=== PATIENT | male | born 1985 | race Two or more races ===

== ENCOUNTER 2022-07-26 15:08 | Emergency (ER) | payer OTHER ==
--- NOTE | 2022-07-26 17:32 | Ultrasound Report ---
PROCEDURE: Testicle w/Doppler INDICATIONS: L testicular pain TECHNIQUE: Real-time scanning was performed of the scrotum and testicles, with image documentation. Color and p ulse Doppler interrogation was performed of both testicles. COMPARISON: None. FINDINGS: Right: Testicle is normal in size at 5.4 x 2.4 x 3.3 cm, and heterogeneous in echotexture. There is an appearance of a lobulated complex echogenic focus within the left testicle. Epididymis is normal in overall size and morphology. No varicoceles. Trace hydrocele. Overlying scrotal skin is normal i n thickness. Left: Testicle is normal in size at 6.8 x 4.4 x 5.0 cm, and homogeneous in echotexture. Epididymis is normal in overall size and morphology. No varicoceles. Trace hydrocele. Overlying scrotal skin is normal in thickness. Doppler: Color and pulse Doppler demonstrate normal and symmetric arterial flow in both testicles. IMPRESSION: Enlarged echogenic ill-defined appearance of the left testicle as above. Vascular flow is identified. Finding could be related to trauma or potentially intermittent torsion. Otherwise, mass lesion shoul d be considered in urology consult is recommended. Reviewed by: Monica Cisneros MD on 07/26/2022 5:30 PM PST Approved by: Monica Cisneros MD on 07/26/2022 5:30 PM PST Station ID: [id number]
[2022-07-26 18:23] LABS: BILIRUBIN,URINE NEGATIVE (NEGATIVE); GLUCOSE, URINE (UA) NEGATIVE (NEGATIVE); KETONES,URINE (UA) NEGATIVE (NEGATIVE); LEUKOCYTE ESTERASE, URINE NEGATIVE (NEGATIVE); NITRITE,URINE NEGATIVE (NEGATIVE); OCCULT BLOOD,URINE NEGATIVE (NEGATIVE); PROTEIN,URINE NEGATIVE (NEGATIVE); UROBILINOGEN,URINE 0.2 (NORMAL) E.U./dL (NORMAL)
[2022-07-26 18:25] LABS: CLARITY,URINE CLEAR (CLEAR)
--- NOTE | 2022-07-26 18:40 | ED Physician Documentation ---
History of Present Illness - Stated complaint Stated Complaint: MALE GI - Chief complaint Chief Complaint: General - History obtained from History obtained from: Patient - History of Present Illness Timing: How many weeks ago (1) Pain level max: 8 Pain level now: 8 - Additonal information Additional information: 36-year-old male presents to the emergency department left-sided testicular pain for 1 week. Worse with walking and movement. States the left testicle is enlarged. No fevers. No chills. Denies any STD exposure. Does not practice insertive anal intercourse. No penile discharge. No dysuria. No abdominal pain. No back pain. Review of Systems Constitutional: denies: Fever, Chills Respiratory: denies: Cough GI: denies: Nausea, Vomiting, Diarrhea Skin: denies: Rash Musculoskeletal: denies: Neck pain, Back pain Neurologic: denies: Headache PD PAST MEDICAL HISTORY - Past Medical History Past Medical History: No - Past Surgical History Past Surgical History: No - Present Medications Home Medications: Ambulatory Orders Medication Instructions Recorded Confirmed Doxycycline Monohydrate 100 mg PO BID #20 cap 07/26/22 - Allergies Allergies/Adverse Reactions: Allergies Allergy/AdvReac Type Severity Reaction Status Date / Time No Known Drug Allergies Allergy Verified 07/26/22 15:11 - Living Situation Living Arrangement: reports: At home - Social History Does the pt have substance abuse?: No - Family History Family history: reports: Non contributory PD ED PE NORMAL - Vitals Vital signs reviewed: Yes - General General: Alert and oriented X 3, No acute distress - HEENT HEENT: Moist mucous membranes - Neck Neck: Supple, no meningeal sign - Cardiac Cardiac: RRR - Respiratory Respiratory: No respiratory distress, Clear bilaterally - Abdomen Abdomen: Soft, Non tender, Non distended - Male Male : Other (Very enlarged and firm left testicle. Normal-appearing scrotum. Diffuse tenderness to the testicle. Right testicle is normal) - Derm Derm: Warm and dry - Neuro Neuro: Alert and oriented X 3 - Psych Psych: Normal mood, Normal affect Results - Vitals Vitals: Vital Signs - 24 hr 07/26/22 07/26/22 15:11 18:55 Temperature 36.5 C Heart Rate 65 75 Respiratory 16 18 Rate Blood Pressure 180/80 H 135/75 H O2 Saturation 99 98 Oxygen O2 Source Room air - Labs Labs: Laboratory Tests 07/26/22 18:15 Urine Color YELLOW Urine Clarity CLEAR Urine pH 6.0 Ur Specific [place] 1.025 Urine Protein NEGATIVE Urine Glucose (UA) NEGATIVE Urine Ketones NEGATIVE Urine Occult Blood NEGATIVE Urine Nitrite NEGATIVE Urine Bilirubin NEGATIVE Urine Urobilinogen 0.2 (NORMAL) Ur Leukocyte Esterase NEGATIVE Ur Microscopic Review NOT INDICATED Urine Culture Comments NOT INDICATED - Rads (name of study) Testicular ultrasound Radiology: Final report received, EMP read contemporaneously, See rad report PD MEDICAL DECISION MAKING - ED course Complexity details: reviewed results, re-evaluated patient, considered differential, d/w patient, d/w solutions delivery consultant ED course: 36-year-old male with an enlarged left testicle, homogenous echotexture. Normal Doppler. Discussed the case with Dr. Whitman, urology on-call at [facility], he recommends treating as orchitis, placing on antibiotics and close follow-up in the urology office. The patient was given the information for follow-up. Started on Rocephin. We will continue doxycycline. Patient counseled regarding signs and symptoms for which I believe and urgent re- evaluation would be necessary. Patient with good understanding of and agreement to plan and is comfortable going home at this time This document was made in part using voice recognition software. While efforts are made to proofread this document, sound alike and grammatical errors may occur. IMPRESSION: Enlarged echogenic ill-defined appearance of the left testicle as above. Vascular flow is identified. Finding could be related to trauma or potentially intermittent torsion. Otherwise, mass lesion should be considered in urology consult is recommended. Departure - Departure Disposition: 01 Home, Self Care Clinical Impression: Orchitis, Enlarged testicle Condition: Good Instructions: ED Orchitis Follow-Up: [facility] [Provider Group] - Within 1 week Prescriptions: Doxycycline Monohydrate 100 mg PO BID #20 cap Comments: Please follow-up with [facility] urology for further care. I spoke with Dr. Edin Oneal. Please take a copy of your ultrasound with you. Please call tomorrow for an appointment. Your prescriptions were sent [facility] [facility] [place]. [facility] urology [phone] Discharge Date/Time: 07/26/22 19:01
[2022-07-26] MEDS ORDERED: cefTRIAXone 1 GM VIAL IM STA (18:42)
[2022-07-26] MEDS ORDERED: LIDOCAINE 1% 2 ML VIAL MC ONE (18:42)
[2022-07-26] MEDS ORDERED: DOXYCYCLINE 100 MG TABLET PO STA (18:44)
[2022-07-26 18:56] VITALS: BP 135/75
== END 2022-07-26 19:01 | disposition home or self-care (01) ==
LOC: ED 15:08
DX: N45.2 Orchitis (principal); N44.8 Other noninflammatory disorders of the testis
CPT/HCPCS: 76870; 81003; 93975; 96372; 99282; 99284; A9270; 81001; 87086

== ENCOUNTER 2022-11-02 12:03 | Inpatient (IN) | payer OTHER ==
[2022-11-02 13:26] LABS: BASOPHILS % (AUTO) 0.6 %; EOSINOPHILS # (AUTO) 0.1 10^3/uL (0.0-0.7); EOSINOPHILS % (AUTO) 1.9 %; LYMPHOCYTES % (AUTO) 61.4 %; MEAN CORPUSCULAR HGB CONC 34.1 g/dL (32.0-36.0); MEAN CORPUSCULAR VOLUME 85.1 fL (80.0-94.0); MEAN PLATELET VOLUME 9.8 fL (7.4-11.4); MONOCYTES # (AUTO) 0.8 10^3/uL (0.0-1.0); MONOCYTES % (AUTO) 15.9 %; NEUTROPHILS # (AUTO) 0.9 10^3/uL (1.5-6.6); NEUTROPHILS % (AUTO) 17.9 %; PLT - PLATELET COUNT 322 10^3/uL (130-450); RED BLOOD COUNT 5.17 10^6/uL (4.70-6.10); RED CELL DISTRIBUTION WIDTH 12.3 % (12.0-15.0); WHITE BLOOD COUNT 4.8 x10^3/uL (4.8-10.8)
[2022-11-02 13:34] LABS: ALBUMIN 3.9 g/dL (3.2-5.5); BILIRUBIN,TOTAL 0.3 mg/dL (0.2-1.0); CALCIUM 9.3 mg/dL (8.5-10.3); CREATININE 1.4 mg/dL (0.6-1.2); LACTIC ACID, VENOUS 2.1 mmol/L (0.5-2.2); POTASSIUM 3.7 mmol/L (3.5-5.0); TOTAL PROTEIN 7.9 g/dL (6.7-8.2)
[2022-11-02 13:35] LABS: INR 1.2 (0.8-1.2); PT - PROTHROMBIN TIME 13.5 secs (9.9-12.6)
--- NOTE | 2022-11-02 13:51 | ED Physician Documentation ---
History of Present Illness - Stated complaint Stated Complaint: SOA - Chief complaint Chief Complaint: Resp - History obtained from History obtained from: Patient - Additonal information Additional information: Otherwise healthy 45-jhyn-gunr-old gentleman was diagnosed with testicular cancer and had a orchiectomy in August. He was followed at [facility] and since October 13 has been getting chemotherapy with Cytoxan, bleomycin, cisplatin, and etoposide. Most recently last Wednesdays, 6 days ago. For the next few days he developed fevers and now feels shortness of breath with some left-sided pain. No persistent fevers. He does have some left calf pain with this. PD PAST MEDICAL HISTORY - Past Surgical History Past Surgical History: No - Present Medications Home Medications: Ambulatory Orders Medication Instructions Recorded Confirmed Ibuprofen [Motrin] 1 tablet PO Q8H PRN 11/02/22 11/02/22 OLANZapine [Zyprexa] 5 mg PO HS 11/02/22 11/02/22 Prochlorperazine Maleate 10 mg PO Q6HR PRN 11/02/22 11/02/22 [Compazine] ondansetron HCL [Ondansetron HCl] 8 mg PO Q8HR PRN 11/02/22 11/02/22 - Allergies Allergies/Adverse Reactions: Allergies Allergy/AdvReac Type Severity Reaction Status Date / Time No Known Drug Allergies Allergy Verified 11/02/22 12:53 - Social History Does the pt smoke?: No Smoking Status: Never smoker Does the pt have substance abuse?: No - Immunizations Immunizations are current?: Yes - POLST Patient has POLST: No PD ED PE NORMAL - Vitals Vital signs reviewed: Yes - General General: Alert and oriented X 3, No acute distress - Neck Neck: Supple, no meningeal sign - Cardiac Cardiac: RRR, No murmur - Respiratory Respiratory: No respiratory distress, Clear bilaterally - Abdomen Abdomen: Non tender - Extremities Extremities: No edema, No calf tenderness / cord - Neuro Neuro: Alert and oriented X 3, Normal speech Results - Vitals Vitals: Vital Signs - 24 hr 11/02/22 11/02/22 11/02/22 12:47 13:45 14:36 Temperature 36.8 C Heart Rate 90 95 Respiratory 26 H 16 18 Rate Blood Pressure 182/93 H 169/89 H O2 Saturation 96 97 11/02/22 11/02/2211/02/23 15:46 16:13 16:30 Temperature Heart Rate 82 88 87 Respiratory 17 19 17 Rate Blood Pressure 139/88 H 164/96 H 143/91 H O2 Saturation 96 93 94 11/02/22 11/02/22 11/02/22 17:00 18:00 18:30 Temperature Heart Rate 101 H 94 95 Respiratory 22 21 25 H Rate Blood Pressure 156/75 H 177/81 H 160/89 H O2 Saturation 94 95 94 11/02/22 19:00 Temperature Heart Rate 95 Respiratory 20 Rate Blood Pressure 162/52 H O2 Saturation 95 Oxygen O2 Source Room air - Labs Labs: Laboratory Tests 11/02/22 11/02/22 11/02/22 13:16 13:16 13:16 WBC 4.8 RBC 5.17 Hgb 15.0 Hct 44.0 MCV 85.1 MCH 29.0 MCHC 34.1 RDW 12.3 Plt Count 322 MPV 9.8 Neut # (Auto) 0.9 L Lymph # (Auto) 3.0 [place] # (Auto) 0.8 Eos # (Auto) 0.1 Baso # (Auto) 0.0 Absolute Nucleated RBC 0.00 Nucleated RBC % 0.0 PT INR Sodium 137 Potassium 3.7 Chloride 101 Carbon Dioxide 25 Anion Gap 11.0 BUN 16 Creatinine 1.4 H Estimated GFR (MDRD) 57 L Glucose 97 Lactic Acid 2.1 Calcium 9.3 Total Bilirubin 0.3 AST 26 ALT 51 Alkaline Phosphatase 63 Total Protein 7.9 Albumin 3.9 Globulin 4.0 Albumin/Globulin Ratio 1.0 Nasal Adenovirus (PCR) Nasal B. parapertussis DNA (PCR) Nasal Coronavir 229E PCR Nasal Coronavir HKU1 PCR Nasal Coronavir NL63 PCR Nasal Coronavir OC43 PCR Nasal Enterovir/Rhinovir PCR Nasal Influenza B PCR Nasal Influenza A PCR Nasal Parainfluen 1 PCR Nasal Parainfluen 2 PCR Nasal Parainfluen 3 PCR Nasal Parainfluen 4 PCR Nasal RSV (PCR) Nasal B.pertussis DNA PCR Nasal C.pneumoniae (PCR) Frank Human Metapneumo PCR Nasal M.pneumoniae (PCR) Nasal SARS-CoV-2 (PCR) 11/02/22 11/02/22 11/02/22 13:16 13:55 16:28 WBC RBC Hgb Hct MCV MCH MCHC RDW Plt Count MPV Neut # (Auto) Lymph # (Auto) [place] # (Auto) Eos # (Auto) Baso # (Auto) Absolute Nucleated RBC Nucleated RBC % PT 13.5 H INR 1.2 Sodium Potassium Chloride Carbon Dioxide Anion Gap BUN Creatinine Estimated GFR (MDRD) Glucose Lactic Acid 1.1 Calcium Total Bilirubin AST ALT Alkaline Phosphatase Total Protein Albumin Globulin Albumin/Globulin Ratio Nasal Adenovirus (PCR) NOT DETECTED Nasal B. parapertussis DNA (PCR) NOT DETECTED Nasal Coronavir 229E PCR NOT DETECTED Nasal Coronavir HKU1 PCR NOT DETECTED Nasal Coronavir NL63 PCR NOT DETECTED Nasal Coronavir OC43 PCR NOT DETECTED Nasal Enterovir/Rhinovir PCR NOT DETECTED Nasal Influenza B PCR NOT DETECTED Nasal Influenza A PCR NOT DETECTED Nasal Parainfluen 1 PCR NOT DETECTED Nasal Parainfluen 2 PCR NOT DETECTED Nasal Parainfluen 3 PCR NOT DETECTED Nasal Parainfluen 4 PCR NOT DETECTED Nasal RSV (PCR) NOT DETECTED Nasal B.pertussis DNA PCR NOT DETECTED Nasal C.pneumoniae (PCR) NOT DETECTED Frank Human Metapneumo PCR NOT DETECTED Nasal M.pneumoniae (PCR) NOT DETECTED Nasal SARS-CoV-2 (PCR) NOT DETECTED - Rads (name of study) CT pulmonary angiography shows extensive pulmonary emboli without evidence of right heart strain. Radiology: Final report received, Discussed with rads, EMP read indepedently PD Medical Decision Making - ED course ED course: 37-year-old gentleman with active testicular cancer undergoing chemotherapy presents with shortness of breath. He has a little bit of left-sided pain. Given the fevers at the onset it really sound more like a URI more than anything else, that said he is at high risk for pulmonary embolism and this was evaluated for with a CT angiography that was positive for a fairly large clot burden but without CT evidence of right heart strain. Subsequently a heparin drip was started and he was referred for echocardiography. Preliminary echo read: LVEF and systolic function normal with an EF of 55 to 60%. Mild RV enlargement. Moderate RV systolic dysfunction. Positive Mccain sign. RV fractional area change is 24%. Mild right atrial enlargement. Trace TR, trace MR, trace RI. The call was placed to [facility] for pulmonary consult for help with disposition. Patient appears well and probably could be discharged on a DOAC, that said the volume of clot burden and mild right heart strain necessitate consultation. After some delays I was put in contact with Dr. Priyank Messina, pulmonary at the [place]. He had reviewed the CTs and we discussed his echo, clinical presentation and vital signs. He did not feel the patient needed to be transferred for thrombolysis etc. but did feel that the patient should probably be observed in the hospital overnight on a heparin drip and then transitioned to apixaban tomorrow. D/W Dr Nino, Telehealth hospitalist at 8:42 PM and he will see the patient. Departure - Departure Disposition: ED Place in Observation Clinical Impression: Pulmonary embolism Condition: Stable Record reviewed to determine appropriate education?: Yes
--- NOTE | 2022-11-02 13:55 | XRAY Report ---
PROCEDURE: Chest 1 View X-Ray INDICATIONS: dyspnea TECHNIQUE: One view of the chest was acquired. COMPARISON: None. FINDINGS: Surgical changes and devices: None. Lungs and pleura: No pleural effusions or pneumothorax. Lungs are clear. Mediastinum: Mediastinal contours appear normal. Heart size is normal. Bones and chest wall: No suspicious bony lesions. Overlying soft tissues appear unremarkable. IMPRESSION: No acute cardiopulmonary pathology. Reviewed by: Gil Mcdowell MD on 11/02/2022 1:53 PM [facility] Approved by: Gil Mcdowell MD on 11/02/2022 1:53 PM [facility] Station ID: [id number]
[2022-11-02] MEDS ORDERED: iohexoL-300 100 ML VIAL ONE (14:46)
[2022-11-02 15:14] LABS: B. PARAPERTUSSIS- RESP PCR PAN NOT DETECTED; B. PERTUSSIS- RESP PCR PANEL NOT DETECTED; C. PNEUMONIAE- RESP PCR PANEL NOT DETECTED; CORONAVIRUS 229E-RESP PCR NOT DETECTED; CORONAVIRUS HKU1-RESP PCR NOT DETECTED; CORONAVIRUS NL63-RESP PCR NOT DETECTED; CORONAVIRUS OC43-RESP PCR NOT DETECTED; HUMAN METAPNEUMOVIRUS NOT DETECTED; INFLUENZA A- RESP PCR PANEL NOT DETECTED; INFLUENZA B - RESP PCR PANEL NOT DETECTED; M. PNEUMONIAE- RESP PCR PANEL NOT DETECTED; PARAINFLUENZA VIRUS 1 NOT DETECTED; PARAINFLUENZA VIRUS 2 NOT DETECTED; PARAINFLUENZA VIRUS 3 NOT DETECTED; PARAINFLUENZA VIRUS 4 NOT DETECTED; RHINOVIRUS/ENTEROVIRUS NOT DETECTED; RSV- RESP PCR PANEL NOT DETECTED; SARS-CoV-2 -RESP PCR PANEL NOT DETECTED
[2022-11-02] MEDS ORDERED: iohexoL-300 100 ML VIAL IVP ONE (15:24)
--- NOTE | 2022-11-02 15:28 | CT Report ---
PROCEDURE: ANGIO CHEST W/WO INDICATIONS: dyspnea, CA, pe protocol CONTRAST: 80ml Omnipaque 300 TECHNIQUE: After the administration of intravenous contrast, 2 mm axial images were acquired from the pulmonary apices to the posterior costophrenic angles during the arterial phase. In addition, 1 mm lung kernel and 5 mm soft tissue kernel reconstructions were performed. 3-dimensional coronal oblique maximum int ensity projection (MIP) reformats, 8 mm axial MIP, and 5 mm coronal and sagittal MPR reformats were t hen performed through the thorax. For radiation dose reduction, the following was used: automated exp osure control, adjustment of mA and/or kV according to patient size. COMPARISON: Chest radiograph on the same day FINDINGS: Image quality: Excellent. Pulmonary arteries: Pulmonary arteries are normal in size. Intraluminal filling defects are seen inv olving distal main pulmonary artery at the bifurcation extending to involve bilateral upper, lower, a nd right middle lobe pulmonary artery branches consistent with extensive bilateral pulmonary emboli. Lungs and pleura: Small airspace opacity in posterior aspect of left lung base is seen concerning for small left lower lobe infiltrate. No pleural effusions or pneumothorax. Central and peripheral airw ays are patent. Mediastinum: Heart size is normal, without pericardial effusion. No definite sign of right heart st rain is noted at this time. No mediastinal or hilar adenopathy. Thoracic aorta is normal in caliber and enhancement. Esophagus is normal in caliber, without hiatal hernia. Bones and chest wall: No suspicious bony lesions. Ribs and thoracic spine appear intact throughout. No axillary or supraclavicular adenopathy. The thyroid is normal in size and there are no incident al findings. Abdomen: Visualized upper abdominal solid organs appear normal in the early arterial phase of enhanc ement. IMPRESSION: 1. Extensive bilateral pulmonary emboli as above. 2. No definite evidence of right heart strain at this time. Heart size is normal, no pericardial effu kenji. No mediastinal or hilar lymphadenopathy. 3. Suggestion of small infiltrate versus atelectasis in posterior aspect of left lung base. Bilateral lungs are otherwise clear. CLINICAL RECOMMENDATION STATEMENTS: In patients <35 years with an ITN detected on CT, MRI, or extrathyroidal ultrasound, the Committee re commends further evaluation with dedicated thyroid ultrasound if the nodule is "e1 cm and has no susp icious imaging features, and if the patient has normal life expectancy. In patients "e35 years with an ITN detected on CT, MRI, or extrathyroidal ultrasound, the Committee r ecommends further evaluation with dedicated thyroid ultrasound if the nodule is "e1.5 cm and has no s uspicious imaging features, and if the patient has normal life expectancy. (ACR, 2014) Reviewed by: Gil Mcdowell MD on 11/02/2022 3:27 PM PST Approved by: Gil Mcdowell MD on 11/02/2022 3:27 PM PST Station ID: [id number]
[2022-11-02] MEDS ORDERED: HEPARIN 5,000 UNIT/ML VIAL IVP ONE (15:30)
[2022-11-02] MEDS: HEPARIN 25000UNITS/500ML (D5W) 25,000 UNIT/500 ML BAG IV SCH (15:37)
[2022-11-02] MEDS ORDERED: ONDANSETRON 4 MG/2 ML VIAL IVP PRN (20:43)
[2022-11-02] MEDS ORDERED: SODIUM CHLORIDE FLUSH 0.9% 10 ML SYRINGE IVP PRN (20:43)
--- NOTE | 2022-11-02 21:13 | HISTORY & PHYSICAL EXAMINATION ---
Chief Complaint - Chief Complaint Chief Complaint: SOB History of Present Illness - History of Present Illness HPI Comment/Other: 37 y old male with PMH Testicular cancer s/p orchiectomy , on chemo presented to ER with c/o SOB for few days. Also c/o low grade fever. Denies chest pain, NAJERA, nausea, vomiting, diarrhea , constipation, symptoms On presentaion, pt afebrile, BP accelerated.Sao2 95% RA Labs showed normal WBC, INR 1.2, Hat Braider 1.4 COVID neg CTA chest showed b/l PE As per ER physician, Dr Randall,Echo showed mild right heart starin and he consulted with cell tuber machine at the [facility] [place] who recommended admission for observation and heparin gtt. Venous doppler of leg is pending In ER, pt was started on heparin gtt Patient is being admitted for Pulmonary emboli History - Past Medical History Cardiovascular: reports: None Respiratory: reports: None Neuro: reports: None Endocrine/Autoimmune: reports: None GI: reports: None : reports: None HEENT: reports: None Psych: reports: None Musculoskeletal: reports: None Derm: reports: None MRSA Hx?: No Other Past Medical History: testicular cancer - POLST Patient has POLST: No Meds/Allgy - Home Medications Home Medications: Ambulatory Orders Medication Instructions Recorded Confirmed Ibuprofen [Motrin] 1 tablet PO Q8H PRN 11/02/22 11/02/22 OLANZapine [Zyprexa] 5 mg PO HS 11/02/22 11/02/22 Prochlorperazine Maleate 10 mg PO Q6HR PRN 11/02/22 11/02/22 [Compazine] ondansetron HCL [Ondansetron HCl] 8 mg PO Q8HR PRN 11/02/22 11/02/22 - Allergies Allergies/Adverse Reactions: Allergies Allergy/AdvReac Type Severity Reaction Status Date / Time No Known Drug Allergies Allergy Verified 11/02/22 12:53 Review of Systems - Other Findings Other Findings: 12 points systems were reviewed and were negative except mentioned in HPI Exam - Vital Signs Vital Signs: Vital Signs x48h Pulse Resp BP Pulse Ox 11/02/22 19:00 95 20 162/52 H 95 11/02/22 18:30 95 25 H 160/89 H 94 11/02/22 18:00 94 21 177/81 H 95 11/02/22 17:00 101 H 22 156/75 H 94 11/02/22 16:30 87 17 143/91 H 94 11/02/22 16:13 88 19 164/96 H 93 11/02/22 15:46 82 17 139/88 H 96 11/02/22 14:36 95 18 169/89 H 97 11/02/22 13:45 16 - Physical Exam General Appearance: positive: No acute distress Eyes Bilateral: positive: Normal inspection ENT: positive: ENT inspection nml Neck: positive: Nml inspection Respiratory: positive: No respiratory distress, Breath sounds nml Cardiovascular: positive: Regular rate & rhythm Abdomen: positive: Non-tender, Nml bowel sounds Skin: positive: No rash Extremities: positive: No pedal edema Conclusion/Plan - Lab Results Fish Bones: 11/02/22 13:16 11/02/22 13:16 - Other Other Results/Comments: A; Pulmonary emboli Testicular cancer s/p Orchiectomy, on chemo Renal insufficiency Plan: Admit in ICU Cardiac monitoring Echo Cardiac enzymes Cont hepatin gtt Venous doppler of legs pending Supportive care Repeat CBC, CMP in am DVT prophylaxic: On heparin gtt Full code Pt is admitted as inpatient as more than 2 midnight stay is expected
--- NOTE | 2022-11-02 22:41 | Ultrasound Report ---
PROCEDURE: Duplex Ext Veins Bilateral INDICATIONS: PE. TECHNIQUE: Real-time imaging, as well as color and pulse Doppler interrogation, were performed of the deep veins of both legs from the inguinal ligament to the popliteal fossa. COMPARISON: CT angiogram chest 10/25/2022 FINDINGS: There are nonocclusive filling defects within the mid left superficial femoral vein, popliteal vein, and 1 of 2 posterior tibial veins. Thrombus also demonstrated within the left gastrocnemius vein. The common femoral and proximal superficial femoral veins appear patent. The deep veins of the right lower extremity are normally compressible, and free of intraluminal throm bus. Color and pulse Doppler demonstrate normal phasic intravascular flow. There is normal augmenta tion response to distal compression maneuver. IMPRESSION: 1. Nonocclusive deep venous thrombosis demonstrated within the left lower extremity as described. 2. No evidence of deep venous thrombosis in the right lower extremity. Findings reported to Dr. Street and Dr. Fuentes at the conclusion of the study by the ultrasound techn ologist. Reviewed by: Shun Clark MD on 11/02/2022 10:39 PM PST Approved by: Shun Clark MD on 11/02/2022 10:39 PM PST Station ID: [id number]
[2022-11-02] MEDS ORDERED: PROMETHAZINE 25 MG TABLET PO PRN (23:34)
[2022-11-03] MEDS: SODIUM CHLORIDE FLUSH 0.9% 10 ML SYRINGE IVP SCH ×2 (00:04→09:41)
[2022-11-03] MEDS: HEPARIN 25000UNITS/500ML (D5W) 25,000 UNIT/500 ML BAG IV SCH ×2 (03:20→13:25)
[2022-11-03 04:44] LABS: BASOPHILS % (AUTO) 0.4 %; CALCIUM, IONIZED 1.15 mmol/L (1.15-1.33); EOSINOPHILS # (AUTO) 0.1 10^3/uL (0.0-0.7); EOSINOPHILS % (AUTO) 1.7 %; HCT - HEMATOCRIT 41.7 % (42.0-52.0); HGB - HEMOGLOBIN 14.2 g/dL (14.0-18.0); LYMPHOCYTES # (AUTO) 3.6 10^3/uL (1.5-3.5); LYMPHOCYTES % (AUTO) 65.8 %; MEAN CORPUSCULAR HEMOGLOBIN 28.7 pg (27.0-31.0); MEAN CORPUSCULAR HGB CONC 34.1 g/dL (32.0-36.0); MEAN CORPUSCULAR VOLUME 84.4 fL (80.0-94.0); MEAN PLATELET VOLUME 9.7 fL (7.4-11.4); MONOCYTES # (AUTO) 0.7 10^3/uL (0.0-1.0); MONOCYTES % (AUTO) 12.5 %; NEUTROPHILS # (AUTO) 0.9 10^3/uL (1.5-6.6); NEUTROPHILS % (AUTO) 17.2 %; PLT - PLATELET COUNT 319 10^3/uL (130-450); RED BLOOD COUNT 4.94 10^6/uL (4.70-6.10); RED CELL DISTRIBUTION WIDTH 12.4 % (12.0-15.0); VBG PH 7.422 (7.31-7.41); WHITE BLOOD COUNT 5.4 x10^3/uL (4.8-10.8)
[2022-11-03 05:02] LABS: ALBUMIN 3.6 g/dL (3.2-5.5); BILIRUBIN,TOTAL 0.3 mg/dL (0.2-1.0); CALCIUM 9.3 mg/dL (8.5-10.3); CREATININE 1.2 mg/dL (0.6-1.2); MAGNESIUM 2.3 mg/dL (1.7-2.8); PHOSPHORUS 4.8 mg/dL (2.5-4.6); POTASSIUM 3.8 mmol/L (3.5-5.0); TOTAL PROTEIN 7.1 g/dL (6.7-8.2)
[2022-11-03] MEDS ORDERED: POTASSIUM CHLORIDE 20 MEQ TABLET PO ONE (08:00)
--- NOTE | 2022-11-03 10:57 | PHARMACY PROGRESS NOTE ---
- Best Possible Medication History Admit Date and Time: 11/02/222043 Processed by: Pharmacy Medication History completed: Yes Patient Interview: Completed Secondary Source(s): Pharmacy records As the person ultimately responsible for medication therapy, providers are able to order a medication from an existing home medication list in [facility] via the "Reconcile Routine" prior to Confirmation of that medication by support architect. Such practice is discouraged except when the physician, in their clinical judgment, deems that a medical need exists for a medication without regard to previous use.
[2022-11-03 13:59] LABS: FECAL OCCULT BLOOD (FIT) NEGATIVE (NEGATIVE)
[2022-11-03] MEDS ORDERED: APIXABAN 5 MG TABLET PO SCH ×3 (14:53→21:00)
--- NOTE | 2022-11-03 15:00 | Discharge Plan ---
Discharge Plan Problem Reviewed?: Yes Disposition: Home, Self Care Condition: Stable Prescriptions: Apixaban [Eliquis] 5 mg PO BID #60 tablet Apixaban [Eliquis] 10 mg PO BID #13 tab Diet: Regular Activity Restrictions: Activity as Tolerated Shower Restrictions: No Driving Restrictions: No Instruction Topics: Apixaban oral tablets Health Concerns: You had been on the phone speaking to your oncology office, getting ready for your next infusion. After asking some questions, and complaints of leg pain, they asked you to be evaluated. You came to the emergency room and was found to have a blood clot in your leg, and a pulmonary embolus in your pulmonary artery, called a saddle embolus. Those can be very dangerous and asked that you were brought into the hospital overnight and monitored. You stayed stable overnight, and you are on blood thinners. I spoke to your oncologist and they requested that you start a blood thinner and you are safe to go home. They will see you in follow-up in the next week. Plan of Treatment: Please follow-up with your oncologist Scooter Yarbrough or his nurse Rosalina in the next week. If you have any recurrence of severe chest pain, or shortness of breath, please feel free to come back to the emergency room. We have started you on a blood thinner, this will prevent more blood clot from forming. Your body will take care of the clot you already have and gradually dissolve it on its own. For the first 7 days you will take 10 mg tablets, twice a day. After that you will switch to 5 mg tablets, twice a day indefinitely. Follow the instructions of your oncologist and he will tell you how long to stay on this pill. This pill is a blood thinner. Do not take aspirin, Aleve, ibuprofen, Naprosyn, or any nonsteroidal with this medication unless you speak to your oncologist or primary care provider. You can take Tylenol for fever or pain. If you have a severe fall, and you have later began to have headaches, dizziness, blurred vision, please go to the emergency room. Care Goals: At this time to get through your cancer treatment, and resume your usual life Assessment: Patient is alert, oriented, lucid, able to follow instructions. He states he will follow through. No Smoking: If you smoke, Please STOP! Call for help.
--- NOTE | 2022-11-03 15:11 | DISCHARGE SUMMARY ---
"Discharge Summary Admit Date: 11/02/22 Discharge Date: 11/03/22 Discharging Provider: Pauline Plaza MD Primary Care Provider: Scooter Yarbrough MD, MS Asst Prof [facility], Oncology Condition at Discharge: Stable Discharge Disposition: 01 Home, Self Care - DIAGNOSES Discharge Diagnoses with Status of Each Condition: 1. Pulmonary Saddle embolus 2. DVT left leg 3. Stage IV testicular cancer - HPI History of Present Illness: 37 y old male with PMH Testicular cancer s/p orchiectomy , on chemo presented to ER with c/o SOB for few days. Also c/o low grade fever. 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 Venous doppler of leg is pending In ER, pt was started on heparin gtt Patient is being admitted for Pulmonary emboli - Past Medical History Cardiovascular: reports: None Respiratory: reports: None Neuro: reports: None Endocrine/Autoimmune: reports: None GI: reports: None : reports: None HEENT: reports: None Psych: reports: None Musculoskeletal: reports: None Derm: reports: None MRSA Hx?: No Other Past Medical History: testicular cancer - CONSULTS | PROCEDURES Procedures: Chest/thorax CT angiogram. Small airspace opacity concerning for a small left lower lobe infiltrate. Pulmonary arteries are normal. Intraluminal filling defect seen involving the distal main pulmonary artery at the bifurcation extending to involve bilateral upper, lower, and right middle lobe pulmonary artery branches consistent with extensive bilateral pulmonary emboli. Chest x-ray without acute cardiopulmonary abnormality Venous duplex study of left lower extremity showed nonocclusive deep venous thr ombosis. No evidence of DVT in the right lower extremity. - HOSPITAL COURSE Hospital Course: The patient was placed in the hospital to start on a heparin drip. He had no further chest pain, and oxygen requirements were normal. He remained with normal O2 sats in the short time he was here. He had no chest pain. No cough. I was able to speak to his oncologist, Scooter Yarbrough MD, who is with [facility]. I described what happened to the patient. Patient had RV strain on echo with a saddle embolus. I specifically wanted to know what the timing was to start anticoagulation by mouth. He stated that the patient was able to start any DOAC today. And he would be able to be discharged today. Patient was delighted with that news. And I ordered Eliquis 10 mg p.o. twice daily for 7 days. Then switch to 5 mg p.o. twice daily thereafter. I told the patient that his oncologist will decide how long he was going to stay on anticoa gulation. He has received instructions on the use of Eliquis. I have also instructed the patient not to use any nonsteroidal therapy. He can use Tylenol for pain relief. One of the things he needs to watch out for in the next few months is developing pulmonary hypertension because of his high embolus load. Make sure he follows through with either his oncologist or his primary care provider to receive follow-up for that. He is discharged in stable condition. Temperature is 36.6. Heart rate 100. Blood pressure 160/98. Respirations 19. 92% on room air. He has been sitting upright in his chair, comfortable, and playing video games. He is playing great when right now and he says it is really helped past the time of the boredom of being in the hospital. His neck is supple. Lungs are clear to auscultation and percussion. There is no increased respiratory effort. Regular rate and rhythm. Occasionally tachycardic to 105. Abdomen is soft, nontender. Greater than 30 minutes was spent correlating discharge after conversing with the patient's oncologist, the patient, and coordinating which DOAC would be paid for by his insurance. - ALLERGIES Allergies/Adverse Reactions: Allergies Allergy/AdvReac Type Severity Reaction Status Date / Time No Known Drug Allergies Allergy Verified 11/02/22 12:53 - MEDICATIONS Home Medications: Ambulatory Orders Medication Instructions Recorded Confirmed Ibuprofen [Motrin] 1 tablet PO Q8H PRN 11/02/22 11/02/22 OLANZapine [Zyprexa] 5 mg PO HS 11/02/22 11/02/22 Prochlorperazine Maleate 10 mg PO Q6HR PRN 11/02/22 11/02/22 [Compazine] ondansetron HCL [Ondansetron HCl] 8 mg PO Q8HR PRN 11/02/22 11/02/22 Apixaban [Eliquis] 5 mg PO BID #60 tablet 11/03/22 Apixaban [Eliquis] 10 mg PO BID #13 tab 11/03/22 HYDROcod/ACETAM 5/325 [Leslie 5/325] 1 tab PO QID PRN 11/03/22 11/03/22 Ketoconazole [Nizoral A-D] See Rx Instructions .ROUTE .COMPLEX 11/03/22 11/03/22 Multivitamin [Theragran] 1 tab PO DAILY 11/03/22 11/03/22 - LABS Result Diagrams: 11/03/22 04:19 11/03/22 04:19"
[2022-11-03 16:47] VITALS: BP 155/94
== END 2022-11-03 17:08 | disposition home or self-care (01) | DRG 176 ==
LOC: ED 12:03 → ICU 20:44
PROVIDERS: ADMIT Internal Medicine; ATTEND Specialist
DX: I26.92 Saddle embolus of pulmonary artery without acute cor pulmonale (principal); I82.4Z2 Acute embolism and thrombosis of unspecified deep veins of left distal lower extremity; C62.90 Malignant neoplasm of unspecified testis, unspecified whether descended or undescended; Z90.79 Acquired absence of other genital organ(s); R50.9 Fever, unspecified; Z20.822 Contact with and (suspected) exposure to COVID-19
CPT/HCPCS: 36415; 71045; 71275; 80048; 80053; 82274; 82330; 83605; 83735; 84100; 84484; 85025; 85610; 85730; 87040; 87150; 87633; 93306; 93970; 96374; 99285; A9270; Q0169; Q9967

== ENCOUNTER 2022-11-20 17:08 | Emergency (ER) | payer OTHER ==
[2022-11-20 17:32] LABS: BASOPHILS % (AUTO) 1.2 %; EOSINOPHILS # (AUTO) 0.1 10^3/uL (0.0-0.7); EOSINOPHILS % (AUTO) 3.6 %; HCT - HEMATOCRIT 34.2 % (42.0-52.0); HGB - HEMOGLOBIN 11.9 g/dL (14.0-18.0); LYMPHOCYTES # (AUTO) 0.9 10^3/uL (1.5-3.5); LYMPHOCYTES % (AUTO) 55.4 %; MEAN CORPUSCULAR HEMOGLOBIN 28.9 pg (27.0-31.0); MEAN CORPUSCULAR HGB CONC 34.8 g/dL (32.0-36.0); MEAN PLATELET VOLUME 9.1 fL (7.4-11.4); MONOCYTES # (AUTO) 0.1 10^3/uL (0.0-1.0); MONOCYTES % (AUTO) 4.8 %; PLT - PLATELET COUNT 80 10^3/uL (130-450); RED BLOOD COUNT 4.12 10^6/uL (4.70-6.10); RED CELL DISTRIBUTION WIDTH 13.3 % (12.0-15.0)
[2022-11-20 17:37] LABS: INR 1.1 (0.8-1.2); PT - PROTHROMBIN TIME 12.1 secs (9.9-12.6)
[2022-11-20 17:43] LABS: ALBUMIN 3.7 g/dL (3.2-5.5); ALBUMIN/GLOBULIN RATIO 1.3 (1.0-2.2); BILIRUBIN,TOTAL 0.4 mg/dL (0.2-1.0); CALCIUM 8.5 mg/dL (8.5-10.3); CREATININE 1.1 mg/dL (0.6-1.2); POTASSIUM 3.2 mmol/L (3.5-5.0); TOTAL PROTEIN 6.6 g/dL (6.7-8.2)
[2022-11-20 17:44] LABS: PARTIAL THROMBOPLASTIN TIME 25.2 secs (24.9-33.3)
[2022-11-20 17:50] LABS: NEUTROPHILS # (AUTO) 0.6 10^3/uL (1.5-6.6); SLIDE REVIEW? Indicated; WHITE BLOOD COUNT 1.7 x10^3/uL (4.8-10.8)
--- NOTE | 2022-11-20 18:17 | XRAY Report ---
PROCEDURE: Chest 1 View X-Ray INDICATIONS: fever, testicular CA TECHNIQUE: One view of the chest was acquired. COMPARISON: November 02, 2022 FINDINGS: Surgical changes and devices: None. Lungs and pleura: No pleural effusions or pneumothorax. Lungs are clear. Mediastinum: Mediastinal contours appear normal. Heart size is normal. Bones and chest wall: No suspicious bony lesions. Overlying soft tissues appear unremarkable. IMPRESSION: No acute cardiopulmonary findings. Reviewed by: Higinio Seo MD on 11/20/2022 5:15 PM AKRENEE Approved by: Higinio Seo MD on 11/20/2022 5:15 PM AKDT Station ID: [id number]
[2022-11-20 18:46] LABS: DIFFERENTIAL COMMENT MANUAL=AUTO DIFF; PLATELET ESTIMATE, MANUAL DECREASED (<130,000) (NORMAL); PLATELET MORPHOLOGY NORMAL APPEARANCE (NORMAL); RBC MORPHOLOGY (MULTIPLE) NORMAL APPEARANCE (NORMAL)
--- NOTE | 2022-11-20 18:49 | ED Physician Documentation ---
History of Present Illness - Stated complaint Stated Complaint: FEVER - Chief complaint Chief Complaint: Fever - History obtained from History obtained from: Patient - Additonal information Additional information: Patient is a 37-year-old male who presents to the emergency department with a fever today. He was diagnosed with testicular cancer in July 2022. He underwent an orchiectomy in August 2022. Started chemotherapy after that. Had a pulmonary embolism in October. He was at chemotherapy today with Tad Mercado at the [facility]. When he arrived home, he states th at he felt chilled and his temperature was 100.0. No cough or congestion. Does have body aches. No urinary symptoms. He called his oncology team and they recommended he come here for evaluation. His oncology team can be reached at Review of Systems Constitutional: reports: Fever Nose: denies: Rhinorrhea / runny nose, Congestion GI: denies: Abdominal Pain, Vomiting, Diarrhea : denies: Dysuria Skin: denies: Rash Musculoskeletal: denies: Neck pain Neurologic: denies: Seizure, Confused, Headache PD PAST MEDICAL HISTORY - Past Medical History Cardiovascular: None Respiratory: None Neuro: None Endocrine/Autoimmune: None GI: None : None HEENT: None Psych: None Musculoskeletal: None Derm: Psoriasis - Past Surgical History Past Surgical History: No - Present Medications Home Medications: Ambulatory Orders Medication Instructions Recorded Confirmed Ibuprofen [Motrin] 1 tablet PO Q8H PRN 11/02/22 11/02/22 OLANZapine [Zyprexa] 5 mg PO HS 11/02/22 11/02/22 Prochlorperazine Maleate 10 mg PO Q6HR PRN 11/02/22 11/02/22 [Compazine] ondansetron HCL [Ondansetron HCl] 8 mg PO Q8HR PRN 11/02/22 11/02/22 Apixaban [Eliquis] 5 mg PO BID #60 tablet 11/03/22 Apixaban [Eliquis] 10 mg PO BID #13 tab 11/03/22 HYDROcod/ACETAM 5/325 [[place] 5/325] 1 tab PO QID PRN 11/03/22 11/03/22 Ketoconazole [Nizoral A-D] See Rx Instructions .ROUTE .COMPLEX 11/03/22 11/03/22 Multivitamin [Theragran] 1 tab PO DAILY 11/03/22 11/03/22 - Allergies Allergies/Adverse Reactions: Allergies Allergy/AdvReac Type Severity Reaction Status Date / Time No Known Drug Allergies Allergy Verified 11/02/22 12:53 - Social History Does the pt smoke?: No Smoking Status: Never smoker Does the pt drink ETOH?: Yes Does the pt have substance abuse?: No - Immunizations Immunizations are current?: Yes - POLST Patient has POLST: No PD ED PE NORMAL - Vitals Vital signs reviewed: Yes - General General: Alert and oriented X 3, No acute distress - HEENT HEENT: Moist mucous membranes, Pharynx benign - Neck Neck: Supple, no meningeal sign - Cardiac Cardiac: RRR, Strong equal pulses - Respiratory Respiratory: No respiratory distress, Clear bilaterally - Abdomen Abdomen: Soft, Non tender, Non distended - Back Back: No CVA TTP - Derm Derm: Warm and dry, No rash - Extremities Extremities: No edema - Neuro Neuro: Alert and oriented X 3 Results - Vitals Vitals: Vital Signs - 24 hr 11/20/22 11/20/22 17:12 19:00 Temperature 37.9 C Heart Rate 98 99 Respiratory 18 16 Rate Blood Pressure 171/81 H 162/105 H O2 Saturation 100 100 Oxygen O2 Source Room air - Labs Labs: Laboratory Tests 11/20/22 11/20/22 11/20/22 17:24 17:24 17:24 WBC 1.7 L* RBC 4.12 L Hgb 11.9 L Hct 34.2 L MCV 83.0 MCH 28.9 MCHC 34.8 RDW 13.3 Plt Count 80 L MPV 9.1 Neut # (Auto) 0.6 L Lymph # (Auto) 0.9 L [place] # (Auto) 0.1 Eos # (Auto) 0.1 Baso # (Auto) 0.0 Absolute Nucleated RBC 0.00 Band Neuts % (Manual) Not Reportable Abnorm Lymph % (Manual) Not Reportable Nucleated RBC % 0.0 Neutrophils # (Manual) Not Reportable Lymphocytes # (Manual) Not Reportable Monocytes # (Manual) Not Reportable Eosinophils # (Manual) Not Reportable Basophils # (Manual) Not Reportable Differential Comment MANUAL=AUTO DIFF Manual Slide Review Indicated Platelet Estimate DECREASED (<130,000) Platelet Morphology NORMAL APPEARANCE RBC Morph Micro Appear NORMAL APPEARANCE PT 12.1 INR 1.1 APTT 25.2 Sodium 138 Potassium 3.2 L Chloride 106 Carbon Dioxide 25 Anion Gap 7.0 BUN 11 Creatinine 1.1 Estimated GFR (MDRD) 75 L Glucose 115 H Lactic Acid Calcium 8.5 Total Bilirubin 0.4 AST 21 ALT 55 Alkaline Phosphatase 54 Total Protein 6.6 L Albumin 3.7 Globulin 2.9 Albumin/Globulin Ratio 1.3 Lipase 53 H Urine Color Urine Clarity Urine pH Ur Specific [place] Urine Protein Urine Glucose (UA) Urine Ketones Urine Occult Blood Urine Nitrite Urine Bilirubin Urine Urobilinogen Ur Leukocyte Esterase Ur Microscopic Review Urine Culture Comments 11/20/22 11/20/22 17:24 18:54 WBC RBC Hgb Hct MCV MCH MCHC RDW Plt Count MPV Neut # (Auto) Lymph # (Auto) [place]he # (Auto) Eos # (Auto) Baso # (Auto) Absolute Nucleated RBC Band Neuts % (Manual) Abnorm Lymph % (Manual) Nucleated RBC % Neutrophils # (Manual) Lymphocytes # (Manual) Monocytes # (Manual) Eosinophils # (Manual) Basophils # (Manual) Differential Comment Manual Slide Review Platelet Estimate Platelet Morphology RBC Morph Micro Appear PT INR APTT Sodium Potassium Chloride Carbon Dioxide Anion Gap BUN Creatinine Estimated GFR (MDRD) Glucose Lactic Acid 1.7 Calcium Total Bilirubin AST ALT Alkaline Phosphatase Total Protein Albumin Globulin Albumin/Globulin Ratio Lipase Urine Color YELLOW Urine Clarity CLEAR Urine pH 6.0 Ur Specific [place] 1.015 Urine Protein NEGATIVE Urine Glucose (UA) NEGATIVE Urine Ketones NEGATIVE Urine Occult Blood NEGATIVE Urine Nitrite NEGATIVE Urine Bilirubin NEGATIVE Urine Urobilinogen 0.2 (NORMAL) Ur Leukocyte Esterase NEGATIVE Ur Microscopic Review NOT INDICATED Urine Culture Comments NOT INDICATED - Rads (name of study) cxr Relevant Findings:: Final report received, See rad report (No acute cardiopulmonary findings. ) PD Medical Decision Making - ED course Complexity details: reviewed results, re-evaluated patient, considered differential, d/w patient ED course: Patient is well-appearing, nontoxic. CBC shows neutropenia, neutrophils of 600. Platelets of 80. Coag is normal. Lactate is normal. Mild hypokalemia at 3.2. Urinalysis is negative. Chest x-ray does not show any acute abnormalities. Awaiting respiratory PCR. When the respiratory PCR returns, the patient will need his oncology team consulted to determine the ongoing plan. Patient will be signed out to the oncoming emergency department physician pending the respiratory PCR and consultation with oncology. This document was made in part using voice recognition software. While efforts are made to proofread this document, sound alike and grammatical errors may occur. Departure - Departure Clinical Impression: Neutropenia Qualifiers: Neutropenia type: unspecified Qualified Code(s): D70.9 - Neutropenia, unspecified Fever Qualifiers: Fever type: unspecified Qualified Code(s): R50.9 - Fever, unspecified Condition: Stable
[2022-11-20 19:05] LABS: BILIRUBIN,URINE NEGATIVE (NEGATIVE); GLUCOSE, URINE (UA) NEGATIVE (NEGATIVE); KETONES,URINE (UA) NEGATIVE (NEGATIVE); LEUKOCYTE ESTERASE, URINE NEGATIVE (NEGATIVE); NITRITE,URINE NEGATIVE (NEGATIVE); OCCULT BLOOD,URINE NEGATIVE (NEGATIVE); PROTEIN,URINE NEGATIVE (NEGATIVE); UROBILINOGEN,URINE 0.2 (NORMAL) E.U./dL (NORMAL)
[2022-11-20 19:10] LABS: CLARITY,URINE CLEAR (CLEAR)
[2022-11-20] MEDS ORDERED: ONDANSETRON 4 MG/2 ML VIAL IVP STA (19:34)
[2022-11-20] MEDS ORDERED: HYDROmorphone 1 MG/ML CARPUJECT IVP STA (19:34)
[2022-11-20 20:11] LABS: B. PARAPERTUSSIS- RESP PCR PAN NOT DETECTED; B. PERTUSSIS- RESP PCR PANEL NOT DETECTED; C. PNEUMONIAE- RESP PCR PANEL NOT DETECTED; CORONAVIRUS 229E-RESP PCR NOT DETECTED; CORONAVIRUS HKU1-RESP PCR NOT DETECTED; CORONAVIRUS NL63-RESP PCR NOT DETECTED; CORONAVIRUS OC43-RESP PCR NOT DETECTED; HUMAN METAPNEUMOVIRUS NOT DETECTED; INFLUENZA A- RESP PCR PANEL NOT DETECTED; INFLUENZA B - RESP PCR PANEL NOT DETECTED; M. PNEUMONIAE- RESP PCR PANEL NOT DETECTED; PARAINFLUENZA VIRUS 1 NOT DETECTED; PARAINFLUENZA VIRUS 2 NOT DETECTED; PARAINFLUENZA VIRUS 3 NOT DETECTED; PARAINFLUENZA VIRUS 4 NOT DETECTED; RHINOVIRUS/ENTEROVIRUS NOT DETECTED; RSV- RESP PCR PANEL NOT DETECTED; SARS-CoV-2 -RESP PCR PANEL NOT DETECTED
--- NOTE | 2022-11-20 22:24 | ED Physician Documentation ---
ED Addendum - Addendum Addendum: Patient received in signout from Dr. Grijalva pending results of his respiratory PCR and consultation with medical oncology at [facility].Patient is currently undergoing chemotherapy treatment for testicular cancer and this afternoon had a temperature of 100.0. Here his temperature Tmax was 37.9. Labs were reviewed which showed neutropenia. There is no source for infection with negative respiratory PCR, urine analysis and chest x-ray. Patient reports feeling okay without any worsening symptoms since being here. [id number] Dr. Vero Marcano, Medical oncology at [facility]. Reviewed patient's presentation, vital signs, labs. She was able to access his records. She recommends at this time that he is okay for discharge home with no antibiotic treatment or dose of antibiotics here. She states that as his temperature even on recheck has not been above 38C, That he does not fit to their criteria for neutropenic fever and would not recommend antibiotics at this time. She understands that blood cultures are pending. She recommends patient have close follow-up with his oncology team and they will also reach out to him on Tuesday morning. I reviewed these recommendations with the patient and his . They are comfortable with plan for discharge and have Ability to return to the emergency department if needed With any worsening symptoms. They are also aware that if blood cultures are positive they will be notified immediately. Departure - Departure Disposition: 01 Home, Self Care Clinical Impression: Low grade fever Neutropenia Qualifiers: Neutropenia type: unspecified Qualified Code(s): D70.9 - Neutropenia, unspecified Condition: Stable Instructions: Neutropenia Comments: Your white Blood cell count is low from your chemotherapy which puts you at risk for developing infections. You were evaluated for a low grade fever which has been below 100.4 here. We have reviewed your case with the on-call oncologist at [facility] and at this time she does not believe you need antibiotics or to be kept in the hospital as being in the hospital also puts your risk of satya infections. We have blood cultures that are pending and if for any reason they are abnormal we will notify you immediately and directed to back to the emergency department.Please have close follow-up with your oncology team. If you develop any higher temperatures > 100.4 Or feeling worse at any time please return to the emergency department. Discharge Date/Time: 11/20/22 22:37
[2022-11-20 22:25] VITALS: BP 160/90
== END 2022-11-20 22:37 | disposition home or self-care (01) ==
LOC: ED 17:08
DX: D70.9 Neutropenia, unspecified (principal); R50.9 Fever, unspecified; Z20.822 Contact with and (suspected) exposure to COVID-19
CPT/HCPCS: 36415; 71045; 80053; 81003; 83605; 83690; 85025; 85610; 85730; 87040; 87633; 96374; 96375; 99284; J1170; 81001; 87086

== ENCOUNTER 2023-08-03 13:01 | Emergency (ER) | payer OTHER ==
[2023-08-03] MEDS ORDERED: HYDROmorphone 1 MG/ML CARPUJECT IM STA (14:00)
[2023-08-03] MEDS ORDERED: DEXAMETHASONE 10 MG/ML VIAL IM STA (14:00)
[2023-08-03] MEDS ORDERED: KETOROLAC 60 MG/2 ML VIAL IM STA (14:00)
--- NOTE | 2023-08-03 14:35 | ED Physician Documentation ---
History of Present Illness - Stated complaint Stated Complaint: LOWER BACK PX - Chief complaint Chief Complaint: Back Pain - History obtained from History obtained from: Patient, Family - Additonal information Additional information: The pt comes to the ED with CC of flare up of chronic low back pain. He denies distinct injury. He states it's the same kind of pain he's had during other flare-ups. No numbness/tingling. No weakness. No loss of bowel or bladder control. No fevers. PD PAST MEDICAL HISTORY - Past Medical History Past Medical History: Yes Cardiovascular: None Respiratory: None Neuro: None Endocrine/Autoimmune: None GI: None : None HEENT: None Psych: None Musculoskeletal: Chronic back pain Derm: Psoriasis - Past Surgical History Past Surgical History: Yes - Present Medications Home Medications: Ambulatory Orders Medication Instructions Recorded Confirmed Ibuprofen [Motrin] 1 tablet PO Q8H PRN 11/02/22 11/02/22 OLANZapine [Zyprexa] 5 mg PO HS 11/02/22 11/02/22 Prochlorperazine Maleate 10 mg PO Q6HR PRN 11/02/22 11/02/22 [Compazine] ondansetron HCL [Ondansetron HCl] 8 mg PO Q8HR PRN 11/02/22 11/02/22 Apixaban [Eliquis] 5 mg PO BID #60 tablet 11/03/22 Apixaban [Eliquis] 10 mg PO BID #13 tab 11/03/22 HYDROcod/ACETAM 5/325 [[place] 5/325] 1 tab PO QID PRN 11/03/22 11/03/22 Ketoconazole [Nizoral A-D] See Rx Instructions .ROUTE .COMPLEX 11/03/22 11/03/22 Multivitamin [Theragran] 1 tab PO DAILY 11/03/22 11/03/22 Cyclobenzaprine [Flexeril] 10 mg PO TID PRN #20 tablet 08/03/23 HYDROcod/ACETAM 5/325 [[place] 5/325] 1 - 2 tablet PO Q6H PRN #14 tablet 08/03/23 predniSONE [Deltasone] 10 mg PO [id number] #42 tab 08/03/23 - Allergies Allergies/Adverse Reactions: Allergies Allergy/AdvReac Type Severity Reaction Status Date / Time No Known Drug Allergies Allergy Verified 08/03/23 13:10 - Social History Does the pt smoke?: No Smoking Status: Never smoker Does the pt drink ETOH?: Yes Does the pt have substance abuse?: No - Immunizations Immunizations are current?: Yes - POLST Patient has POLST: No PD ED PE NORMAL - Vitals Vital signs reviewed: Yes - General General: Alert and oriented X 3, No acute distress, Well developed/nourished - HEENT HEENT: Atraumatic, PERRL, EOMI, Moist mucous membranes - Neck Neck: Supple, no meningeal sign - Cardiac Cardiac: Strong equal pulses - Respiratory Respiratory: No respiratory distress - Abdomen Abdomen: Soft, Non tender, Non distended - Derm Derm: Normal color, Warm and dry, No rash - Extremities Extremities: No deformity, No edema - Neuro Neuro: Alert and oriented X 3, tax agent 2-12 intact, No motor deficit, No sensory deficit, Normal speech - Psych Psych: Normal mood, Normal affect Results - Vitals Vitals: Oxygen O2 Source Room air PD Medical Decision Making - ED course Complexity details: considered differential, d/w patient ED course: The pt was treated symptomatically in the ED. I did not feel emergent advanced imaging was indicated, given the chronic, recurrent nature of the symptoms, and the lack of emergent associated symptoms. The pt was feeling better after treatment in the ED. He is stable for d/c home. We have discussed the usual indications for follow up and return. Departure - Departure Disposition: 01 Home, Self Care Clinical Impression: Back pain Qualifiers: Back pain location: low back pain Chronicity: acute Back pain laterality: unspecified Sciatica presence: without sciatica Qualified Code(s): M54.50 - Low back pain, unspecified Condition: Stable Instructions: ED Back Care Tips, ED Neck Back Pain General Prescriptions: predniSONE [Deltasone] 10 mg PO [id number] #42 tab Cyclobenzaprine [Flexeril] 10 mg PO TID PRN #20 tablet PRN Reason: Spasms HYDROcod/ACETAM 5/325 [[place] 5/325] 1 - 2 tablet PO Q6H PRN #14 tablet PRN Reason: Pain Comments: You have been treated symptomatically for your back pain in the emergency department today. There is no evidence at this point in time an emergent comp lication of your chronic back pain. It is important that you continue to work with your doctors and physical therapist to work on getting your core strength back up and to further troubleshoot your back pain. Please follow-up with your primary doctor if you feel that your episodes are becoming worse or more frequent. As far as medications to help with your pain, prescriptions have been electronically transmitted to the [facility] pharmacy in [place]. Discharge Date/Time: 08/03/23 14:58
[2023-08-03 14:54] VITALS: BP 131/89; O2SAT 98
== END 2023-08-03 14:58 | disposition home or self-care (01) ==
LOC: ED 13:01
DX: M54.50 Low back pain, unspecified (principal); Z79.899 Other long term (current) drug therapy; Z79.01 Long term (current) use of anticoagulants
CPT/HCPCS: 96372; 99283; J1170

== ENCOUNTER 2023-08-20 12:52 | Outpatient (CLI) | payer OTHER ==
--- NOTE | 2023-08-22 08:52 | MRI Report ---
PROCEDURE: LUMBAR SPINE WO INDICATIONS: LOW BACK PAIN, HX TESTICULAR CA TECHNIQUE: Noncontrast sagittal T1 spin echo and T2 fast echo, sagittal STIR, axial T1 and T2 fast spin echo thr ough the lumbar spine. In cases with scoliosis, additional coronal T2 fast spin echo may be performe d. COMPARISON: None. FINDINGS: Image quality: Excellent. Alignment and Curvature: There is normal bony alignment. Bone Marrow: Marrow is of normal overall signal. No acute vertebral body compression fractures. Spinal Cord: Conus medullaris terminates at the T12-L1 level. Visualized cord demonstrates normal s ignal and size. Paraspinous Soft Tissues: No paravertebral masses. There is either very large cystic structure ante rior to the lumbar spine, eccentric to the right, were 2 subjacent cystic structures. The overall dim ensions are at least 22.9 cm in craniocaudal dimension and 14.6 cm in axial dimension. T12-L1: Normal in appearance. L1-L2: Normal in appearance. L2-L3: There are what appear to be bilateral posterolateral bridging osteophytes centered at the d iscs narrowing both lateral recesses. Reference parasagittal T2-weighted images 7 and 12 of series 2. No central canal stenosis or foraminal stenosis. L3-L4: Disc bulge. Epidural lipomatosis. No central canal stenosis. To a lesser extent, there appea r to be bilateral posterolateral bridging osteophytes narrowing the lateral recess and somewhat. No s ignificant foraminal stenosis. L4-L5: Disc bulge. Mild facet hypertrophy. Circumferential epidural lipomatosis. Mild superimposed left paracentral disc protrusion, with a degree of impingement on the left L5 nerve root and possibly the left S1 nerve root in the left side of the canal. Reference sagittal T2 image 17 of series 2 and axial T2 image 37 of series 5. There is moderate central canal stenosis. No significant foraminal st enosis. L5-S1: Moderate diffuse disc bulge. Facet hypertrophy. Circumferential epidural lipomatosis. Modera te canal stenosis. Disc material abuts the bilateral S1 nerve roots in the lateral recesses. Moderate central canal stenosis. Mild bilateral foraminal stenosis. IMPRESSION: 1. There is underlying lower lumbar facet arthropathy and epidural lipomatosis. Epidural lipomatosis contributes to canal stenosis at L4-L5 and L5-S1. 2. At L4-L5, there is moderate central canal stenosis. Additionally, a left paracentral disc protrusi on impinges on the left L5 nerve root and possibly the left S1 nerve root. 3. At L5-S1, there is moderate canal stenosis. Disc material abuts the S1 nerve roots bilaterally in the lateral recesses. 4. Bilateral posterior lateral bridging osteophytes and L2-L3 and L3-L4 results in bilateral lateral recess stenosis at these levels. 5. Either a very large cystic structure anterior to the lumbar spine or 2 adjacent cystic structures, with overall dimensions in 2 planes measuring at least 22.9 x 14.6 cm. Comment: Recommend CT abdomen and pelvis with contrast for further evaluation of this cystic structur e. Reviewed by: Param Mosley MD on 08/22/2023 8:50 AM PST Approved by: Param Mosley MD on 08/22/2023 8:50 AM PST Station ID: [id number]
== END 2023-08-20 12:53 | disposition home or self-care (01) ==
LOC: DI 12:52
PROVIDERS: ATTEND Nurse Practitioner Family
DX: M47.816 Spondylosis without myelopathy or radiculopathy, lumbar region (principal); M48.061 Spinal stenosis, lumbar region without neurogenic claudication; M48.07 Spinal stenosis, lumbosacral region; E88.2 Lipomatosis, not elsewhere classified; M51.26 Other intervertebral disc displacement, lumbar region; M51.36 Other intervertebral disc degeneration, lumbar region; R93.7 Abnormal findings on diagnostic imaging of other parts of musculoskeletal system

== ENCOUNTER 2023-09-06 21:28 | Emergency (ER) | payer OTHER ==
[2023-09-06 22:56] LABS: ALBUMIN 4.2 g/dL (3.2-5.5); ALBUMIN/GLOBULIN RATIO 1.4 (1.0-2.2); BILIRUBIN,TOTAL 0.2 mg/dL (0.2-1.0); CALCIUM 9.4 mg/dL (8.5-10.3); CREATININE 1.4 mg/dL (0.6-1.3); POTASSIUM 3.8 mmol/L (3.5-4.5); TOTAL PROTEIN 7.2 g/dL (6.4-8.9)
--- NOTE | 2023-09-07 00:19 | ED Physician Documentation ---
History of Present Illness - Stated complaint Stated Complaint: BILAT FEET/LEG SWELLING - Chief complaint Chief Complaint: Ext Problem - History obtained from History obtained from: Patient - Additonal information Additional information: The pt comes to the ED for CC of bilateral leg and foot swelling for the past few weeks, and concern over blood clot. He is currently in treatment for cancer, and was told by his doctor to come. No SOB or CP. No increased swelling on one side compared to the other. No h/o DVT. Pt does not smoke. PD PAST MEDICAL HISTORY - Past Medical History Cardiovascular: None Respiratory: None Neuro: None Endocrine/Autoimmune: None GI: None : None HEENT: None Psych: None Musculoskeletal: Chronic back pain Derm: Psoriasis - Past Surgical History Past Surgical History: Yes - Present Medications Home Medications: Ambulatory Orders Medication Instructions Recorded Confirmed Ibuprofen [Motrin] 1 tablet PO Q8H PRN 11/02/22 11/02/22 OLANZapine [Zyprexa] 5 mg PO HS 11/02/22 11/02/22 Prochlorperazine Maleate 10 mg PO Q6HR PRN 11/02/22 11/02/22 [Compazine] ondansetron HCL [Ondansetron HCl] 8 mg PO Q8HR PRN 11/02/22 11/02/22 Apixaban [Eliquis] 5 mg PO BID #60 tablet 11/03/22 Apixaban [Eliquis] 10 mg PO BID #13 tab 11/03/22 HYDROcod/ACETAM 5/325 [[place] 5/325] 1 tab PO QID PRN 11/03/22 11/03/22 Ketoconazole [Nizoral A-D] See Rx Instructions .ROUTE .COMPLEX 11/03/22 11/03/22 Multivitamin [Theragran] 1 tab PO DAILY 11/03/22 11/03/22 Cyclobenzaprine [Flexeril] 10 mg PO TID PRN #20 tablet 08/03/23 HYDROcod/ACETAM 5/325 [[place] 5/325] 1 - 2 tablet PO Q6H PRN #14 tablet 08/03/23 predniSONE [Deltasone] 10 mg PO [id number] #42 tab 08/03/23 - Allergies Allergies/Adverse Reactions: Allergies Allergy/AdvReac Type Severity Reaction Status Date / Time No Known Drug Allergies Allergy Verified 09/06/23 21:46 - Social History Does the pt smoke?: No Smoking Status: Never smoker Does the pt drink ETOH?: Yes Does the pt have substance abuse?: No - Immunizations Immunizations are current?: Yes - POLST Patient has POLST: No PD ED PE NORMAL - Vitals Vital signs reviewed: Yes - General General: Alert and oriented X 3, No acute distress - HEENT HEENT: Atraumatic, PERRL, EOMI, Moist mucous membranes - Neck Neck: Supple, no meningeal sign - Cardiac Cardiac: RRR, No murmur - Respiratory Respiratory: No respiratory distress, Clear bilaterally - Abdomen Abdomen: Soft, Non tender, Non distended - Derm Derm: Normal color, Warm and dry, No rash - Extremities Extremities: No deformity, No calf tenderness / cord, Other (Moderate bilateral edema, symmetrical.) - Neuro Neuro: Alert and oriented X 3 - Psych Psych: Normal mood, Normal affect Results - Vitals Vitals: Oxygen O2 Source Room air - Labs Labs: Laboratory Tests 09/06/23 09/06/23 09/06/23 22:28 22:28 22:28 D-Dimer > 1050.0 H Sodium 138 Potassium 3.8 Chloride 103 Carbon Dioxide 28 Anion Gap 7.0 BUN 12 Creatinine 1.4 H Estimated GFR (MDRD) 56 L Glucose 100 Calcium 9.4 Total Bilirubin 0.2 AST 16 ALT 25 Alkaline Phosphatase 61 B-Natriuretic Peptide 6 Total Protein 7.2 Albumin 4.2 Globulin 3.0 Albumin/Globulin Ratio 1.4 Lipase 36 - Rads (name of study) US LE Relevant Findings:: Final report received (neg) PD Medical Decision Making - ED course Complexity details: reviewed results, re-evaluated patient, considered differential, d/w patient ED course: The pt had fairly symmetrical, bilateral swelling, but with cancer, he was high risk for DVT, so I did order a bilateral US of his legs. This was negative. Labs showed no evidence of heart, kidney or liver failure, though he did appear to have some mild renal insufficiency. I discussed the findings with the pt, and we have discussed the need for follow-up as well as the usual indications for return. Departure - Departure Disposition: 01 Home, Self Care Clinical Impression: Lower extremity edema Condition: Stable Instructions: ED Edema Legs Bilateral Comments: Your ultrasound looks good tonightthere is no evidence of blood clots in the circulation of either of your legs. We also check labs to look for congestive heart failure, liver failure, or kidney failure, and all these look good. Is not clear exactly why you have swelling in your legs. This could be partly due to swollen lymph nodes or to scarring from your surgery or radiation. At this point in time, you may try using pressure stockings and elevating your legs whenever you are sitting or laying down to help drain some swelling out. Please follow-up with your primary doctor and your oncologist. Forms: PCP List Discharge Date/Time: 09/07/23 00:27
[2023-09-07 00:34] VITALS: BP 155/98; O2SAT 95
--- NOTE | 2023-09-07 00:34 | Ultrasound Report ---
PROCEDURE: Duplex Ext Veins Bilateral INDICATIONS: S Daniel TECHNIQUE: Real-time imaging, as well as color and pulse Doppler interrogation, were performed of the deep veins of both legs from the inguinal ligament to the popliteal fossa. Attempted visualization of the calf veins was performed. COMPARISON: 11/02/2022 FINDINGS: The deep veins are normally compressible, and free of intraluminal thrombus. Color and pu lse Doppler demonstrate normal phasic intravascular flow. There is normal augmentation response to d istal compression maneuver. IMPRESSION: No deep venous thrombosis of the visualized lower extremities. Reviewed by: Mitch Webster MD on 09/07/2023 12:33 AM PST Approved by: Mitch Webster MD on 09/07/2023 12:33 AM PST Station ID: [id number]
== END 2023-09-07 00:27 | disposition home or self-care (01) ==
LOC: ED 21:28
DX: R60.0 Localized edema (principal); C80.1 Malignant (primary) neoplasm, unspecified; Z79.899 Other long term (current) drug therapy; Z79.01 Long term (current) use of anticoagulants
CPT/HCPCS: 36415; 80053; 83690; 83880; 85379; 93970; 99283; 99284

== ENCOUNTER 2024-03-02 11:21 | Outpatient (CLI) | payer OTHER ==
--- NOTE | 2024-03-02 12:10 | Sleep Patient Instructions ---
Sleep Center Visit Summary - Patient Visit Information Reason for Visit: Initial consultation - Patient Instructions Additional Instructions: You will continue with CPAP therapy with pressure set at 10-12 cmH2O. A supply prescription will be updated with your DME. I have added an order to update your PAP machine that is malfunctioning. Please call the office to schedule a compliance follow up once you get your new device. We encourage you to continue to try to lose weight. Please follow up with the sleep care office one month after obtaining new device. - Clinic Information Contact: [facility] [address] [place] [address] [email or web address] T: [phone]
--- NOTE | 2024-03-02 12:15 | SLEEP CARE CONSULTATION ---
Information from patient questionnaire entered by Susana Cisneros. I have reviewed and concur with the information entered by Susana Cisneros. This document represents the service I personally performed and the decisions made by me, Kenyatta Betancourt ARNP. History of Present Illness Service Date and Time: 03/02/2024 1121 Reason for Visit: New patient, Previously diagnosed sleep apnea, sleep apnea on CPAP therapy Chief Complaint: reports: Insomnia, Snoring, Observed pauses in breathing, Fatigue, Frequent awakenings at night, Other (Update supplies) Date of Onset: 13 years Usual bedtime: 2 AM Time it takes to fall asleep: Hours Snores at night: Yes Observed to quit breathing while asleep: Yes Sleeps alone due to snoring: No Number of times waking at night: 3 Reasons for waking at night: reports: Other (Unknown reason) Toss, Turn, or Twitch while sleeping: Yes Recalls having dreams: Yes Usually gets out of bed at: 8 AM Feels refreshed in the morning: No Morning headache: No Sleepy or fatigued during the day: Yes Ever fallen asleep while driving: No Takes day naps: No Dreams during day naps: No Prior sleep studies: Yes Year and Where: 2019 [facility] in [place], [place] Type of Sleep Study: Polysomnography (Split night) Additional HPI information: JOSÉ BELTRAN was previously diagnosed to have very severe, AHI 126.4, central and obstructive sleep apnea-hypopnea syndrome as seen in split night sleep study dated 10/11/1999 at [facility] in [place] and comes in today to establish care for CPAP therapy. - Parasomnia Symptoms Ever been unable to move upon waking from sleep: Yes Walks in sleep: No Talks in sleep: Yes Ever acted out dreams in sleep: Yes Ever felt weak in the knees when startled or emotional: Yes Bothered by creepy, crawly, restless sensations in legs: No Problems with memory or concentration: Yes CPAP Compliance Data - Data Reviewed with Patient Average duration of nightly device use: 7 hours 18 minutes Compliance rate %: 50 (11/11/23-11/24/23) Current pressure setting (cmH2O): 10-12 Average residual AHI: 0.3 Average large leak: 9 mins 30 secs Compliance data discussion: He has a Dreamstation 2. He gets his supplies from [employer]. He uses a hybrid full face mask, ResMed AirFit F30, medium cushion. He does keep a backup mask. Subjective Missed days of use due to: reports: other (Machine's digital readout is blank) Patient concerns: reports: dry mouth, nose, throat (dry mouth, sometimes). denies: aerophagia, mask discomfort, air blowing in eyes, mask leak noise, condensation in mask/hose, nasal congestion, epistaxis Observed to snore while using device: No Current pressure setting perceived as: comfortable On therapy, patient: reports: sleeping better, awakening more refreshed, being more awake and alert during the day, more rested overall. 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 Patient is and lives in [place]. Have you smoked in the past 12 months: No Alcohol use: Yes Alcohol amount and frequency: 3 drinks once a month Caffeine use: Yes Caffeine amount and frequency: 1 daily Family History Family history of sleep disordered breathing: Yes Family Hx Sleep Apnea: Mother: Snoring, Sibling: Snoring, Grandparent: Snoring Allergies and Home Medications Known drug allergies: No Drug allergies reviewed: Yes Home medication list reviewed: Yes (as listed) Allergy and home medication list: Allergies No Known Drug Allergies Allergy (Verified 02/29/24 09:36) Home Medications Medication Instructions Recorded Confirmed Last Taken Type Ibuprofen [Motrin] 1 tablet PO Q8H PRN 11/02/22 03/02/24 Unknown History OLANZapine [Zyprexa] 5 mg PO HS 11/02/22 03/02/24 Unknown History Ketoconazole [Nizoral A-D] See Rx Instructions .ROUTE .COMPLEX 11/03/22 03/02/24 Unknown History Multivitamin [Theragran] 1 tab PO DAILY 11/03/22 03/02/24 Unknown History Cyclobenzaprine [Flexeril] 10 mg PO TID PRN #20 tablet 08/03/23 03/02/24 Unknown Rx Baclofen See Rx Instructions .ROUTE .COMPLEX 03/02/24 03/02/24 Unknown History Clobetasol 0.05% Oint See Rx Instructions .ROUTE .COMPLEX 03/02/24 03/02/24 Unknown History Docusate Sodium See Rx Instructions .ROUTE .COMPLEX 03/02/24 03/02/24 Unknown History Lisinopril See Rx Instructions .ROUTE .COMPLEX 03/02/24 03/02/24 Unknown History Naproxen See Rx Instructions .ROUTE .COMPLEX 03/02/24 03/02/24 Unknown History Tadalafil See Rx Instructions .ROUTE .COMPLEX 03/02/24 03/02/24 Unknown History Review of Systems Weight gain over past 5 years: 40 Weight loss over past 5 years: 40 Cardiovascular: reports: high blood pressure, leg or foot swelling Gastrointestinal: denies: heartburn Neurological: reports: gait or balance problems. denies: headaches Psychiatric: reports: anxiety, depression, mood disorder Ear/Nose/Throat: reports: wisdom teeth removed. denies: tonsillectomy Endocrine: reports: sluggishness (/tired) Musculoskeletal: reports: back pain, muscle pain or cramping Physical Exam Vital signs obtained and entered by: Kenyatta Leung NP Blood Pressure: 144/78 Cuff size: long (right arm) Heart Rate: 72 O2 Saturation: 96 Height: 6 ft 4.5 in Weight: 286 lb 9.6 oz Body Mass Index: 34.4 BMI Classification: Obese Neck circumference: 18.5 Heart: regular rate and rhythm Lungs: clear bilaterally Impression and Plan 1. Central Sleep Apnea-Hypopnea Syndrome, very severe, with good treatment compliance and good apnea control. On CPAP therapy, the patient has better sleep quality and is more rested overall. He says a few months ago his machine's digital readout went blank and he is unable to access any menus or settings on his machine. He says it is blowing air because it will turn on but he does not feel like it is as effective as it used to be. He says his DreamStation 2 is about 4 years old and it is of reasonable use. In addition, it's digital screen is blank and we could not retrieve his data, a sign of malfunction. Thus, the CPAP will be replaced or repaired. A DWO prescription will be made. Compliance guidelines for new device and follow up discussed. Patient's apnea severity and rationale for treatment to reduce apnea, improve sleep quality and reduce cardiovascular and cerebrovascular events was reviewed. I also reviewed the benefit of consistent device use of CPAP for hypertension, depression/anxiety, mood disorder. 2. Obesity, unspecified. Currently patients BMI is 34.4. Obesity increases the risk of apnea, CPAP pressure requirements and overall health risks especially cardiovascular and diabetes. Thus patient is advised to lose weight. * Continue auto CPAP pressure at 10-12 cmH2O * Update malfunctioning machine * Update supply prescription * Notify me if snoring with mask or feeling that the pressure is too much or too little * Attempt to lose weight * Call this office if any problems using CPAP * Return for follow up one month after obtaining new device, or sooner if concerns arise Counseling Topics: Weight loss health impact Prescriptions: Auto CPAP, Device supplies Plan: update malfunctioning device and compliance followup Visit Type: In Office Time Spent with Patient (minutes): 38 Provider Statement: I spent 100% of the Face to Face Visit with the patient with greater than 50% spent counseling the patient and coordination of care.
[2024-03-02 12:23] VITALS: BP 144/78; O2SAT 96
== END 2024-03-02 11:22 | disposition home or self-care (01) ==
LOC: SC 11:21
PROVIDERS: ATTEND Nurse Practitioner Family
DX: G47.33 Obstructive sleep apnea (adult) (pediatric) (principal); E66.9 Obesity, unspecified; Z68.34 Body mass index [BMI] 34.0-34.9, adult
CPT/HCPCS: 99203; 99212

== ENCOUNTER 2024-03-05 07:08 | Outpatient (CLI) | payer OTHER ==
--- NOTE | 2024-03-05 19:08 | Ultrasound Report ---
PROCEDURE: Arterial Visceral Complete INDICATIONS: HYPERTESION TECHNIQUE: Real time scanning was performed of both kidneys, followed by Color and pulsed Doppler in terrogation of the renal vessels. COMPARISON: None FINDINGS: Aortic peak systolic velocity: 130 cm/s. Right side: Sousa-scale imaging: Kidney is 12.5 cm long. No hydronephrosis. No nephrolithiasis. Renal cortex i s normal in echogenicity. No suspicious solid renal masses. Proximal renal artery peak systolic velocity: Not seen Mid renal artery peak systolic velocity: Not seen Distal renal artery peak systolic velocity: 114 cm/s. Renal vein: Patent, without thrombus. Peak renal/aortic ratio (RAR): 0.87. Left side: Sousa-scale imaging: Kidney is 12.8 cm long. No hydronephrosis. No nephrolithiasis. Renal cortex i s normal in echogenicity. No suspicious solid renal masses. Proximal renal artery peak systolic velocity: Not seen Mid-renal artery peak systolic velocity: Not seen Distal renal artery peak systolic velocity: 79 cm/s. Renal vein: Patent, without thrombus. Peak renal/aortic ratio (RAR): 0.60. Comment: The presence of midline abdominal scar precludes visualization of the proximal and mid porti ons of the renal arteries. IMPRESSION: Nondiagnostic study. Comment: If continue to suspect clinically significant renal artery stenosis, consider CT angiography or MR angiography. Reviewed by: Param Mosley MD on 03/05/2024 7:07 PM PDT Approved by: Param Mosley MD on 03/05/2024 7:07 PM PDT Station ID: [id number]
== END 2024-03-05 07:09 | disposition home or self-care (01) ==
LOC: DI 07:08
PROVIDERS: ATTEND Nurse Practitioner Family
DX: N17.9 Acute kidney failure, unspecified (principal); I10 Essential (primary) hypertension
CPT/HCPCS: 93975

== ENCOUNTER 2024-04-03 12:57 | Emergency (ER) | payer OTHER ==
--- NOTE | 2024-04-03 15:47 | ED Physician Documentation ---
History of Present Illness - Stated complaint Stated Complaint: LOWER BACK PX - Chief complaint Chief Complaint: Back Pain - Additonal information Additional information: Patient is a 38-year-old male presenting to the emergency department with past medical history of testicular cancer. Patient presents to the emergency department with worsening lower back pain. Patient notes he was here a few months ago and on MRI had large amount of fluid in lymph nodes that required drainage after he was having persistent low back pain. Patient notes after this he followed up with physical therapy and was doing significantly better however he went to follow-up with his PCP and was reinstructed to go back to physical therapy as he is not improving as well as he should be. He notes he has been having worsening lower back pain going on for about a week he notes some mild numbness in bilateral lower legs and denies any weakness to bilateral lower legs. No fevers no incontinence issues. He denies any trauma to his lower back. PD PAST MEDICAL HISTORY - Past Medical History Past Medical History: Yes Cardiovascular: None Respiratory: None Neuro: None Endocrine/Autoimmune: None GI: None : None HEENT: None Psych: None Musculoskeletal: Chronic back pain Derm: Psoriasis Other Past Medical History: testicular cancer-remission 2022 - Past Surgical History Past Surgical History: Yes - Present Medications Home Medications: Ambulatory Orders Medication Instructions Recorded Confirmed Ketoconazole [Nizoral A-D] See Rx Instructions .ROUTE .COMPLEX 11/03/22 04/03/24 Multivitamin [Theragran] 1 tab PO DAILY 11/03/22 04/03/24 Baclofen See Rx Instructions .ROUTE .COMPLEX 03/02/24 04/03/24 Clobetasol 0.05% Oint See Rx Instructions .ROUTE .COMPLEX 03/02/24 04/03/24 Docusate Sodium See Rx Instructions .ROUTE .COMPLEX 03/02/24 04/03/24 Lisinopril 10 mg PO DAILY 03/02/24 04/03/24 Tadalafil 5 mg PO DAILY 03/02/24 04/03/24 Cyclobenzaprine [Flexeril] 10 mg PO TID PRN #20 tablet 04/03/24 Lidocaine Patch 4% [Lidocaine Pain 1 patch TOP DAILY 10 Days #10 patch 04/03/24 Relief] - Allergies Allergies/Adverse Reactions: Allergies Allergy/AdvReac Type Severity Reaction Status Date / Time No Known Drug Allergies Allergy Verified 04/03/24 13:32 - Social History Does the pt smoke?: No Smoking Status: Never smoker Does the pt drink ETOH?: Yes Does the pt have substance abuse?: No - Immunizations Immunizations are current?: Yes - POLST Patient has POLST: No PD ED PE NORMAL - Vitals Vital signs reviewed: Yes - General General: Alert and oriented X 3 - HEENT HEENT: Atraumatic - Neck Neck: Supple, no meningeal sign - Cardiac Cardiac: No murmur, No gallop, No rub - Respiratory Respiratory: No respiratory distress, Clear bilaterally - Abdomen Abdomen: Normal bowel sounds, Non tender, Non distended - Back Back: Other (Reproducible lumbar spinous process and paraspinal muscle tenderness on examination he has sensation intact in distal extremities no obvious deformity swelling or bruising appreciated his strength intact and lower legs bilaterally equal. Pulses intact 2+ DP and PT) - Neuro Neuro: Alert and oriented X 3, personal service workers 2-12 intact, No motor deficit, No sensory deficit Results - Vitals Vitals: Vital Signs - 24 hr 04/03/24 04/03/24 04/03/24 13:25 14:51 17:08 Temperature 36.4 C L Heart Rate 61 55 L 62 Respiratory 19 16 16 Rate Blood Pressure 154/95 H 133/70 H 138/64 H O2 Saturation 100 98 97 04/03/24 18:34 Temperature 36.4 C L Heart Rate 68 Respiratory 17 Rate Blood Pressure 129/68 O2 Saturation 99 Oxygen O2 Source Room air PD Medical Decision Making - ED course Complexity details: reviewed old records, re-evaluated patient ED course: Patient is a 38-year-old male presenting to the emergency department with persistent lower back pain symptoms have been going on for about a week history of testicular cancer and previously was seen here few months ago for lumbar back pain with decreased sensation in lower extremities and was found to have large amount of fluid in his abdomen that required drainage he notes since then he has been doing better until about a week ago his symptoms returned and feels similar to when he was seen a few months ago. Patient has been following with his PCP and oncologist and has been reinstructed to go back to physical therapy as his not been improving as he supposed to. He has no focal neurodeficits on physical exam his vitals are stable he is afebrile. No obvious red flag symptoms except for he has previous history of testicular cancer. He denies any recent weight loss no decreased appetite no generalized weakness. MRI obtained of the lumbar spine given history of testicular cancer with decreased sensation lower legs. This showed no obvious metastatic disease. Multiple degenerative changes noted to MRI imaging. No severe or spinal or neural foraminal narrowing appreciated. Patient updated on reassuring findings he was given Toradol and muscle relaxer here in the emergency department he is feeling significantly better he is able to stand and ambulate. Muscle relaxer and lidocaine patches sent to patient's pharmacy for pain control at home he will follow-up with physical therapy as instructed instructed to watch for any red flag symptoms including fevers worsening pain numbness tingling loss of sensation weakness, incontinence or any other new or worsening symptoms Departure - Departure Disposition: 01 Home, Self Care Clinical Impression: Acute pain, Lumbar back sprain Condition: Good Instructions: ED Back Care Tips, ED Exercises Lumbar Muscles Follow-Up: NAVYA GARCIA NP [Primary Care Provider] - Prescriptions: Cyclobenzaprine [Flexeril] 10 mg PO TID PRN #20 tablet PRN Reason: Spasms Lidocaine Patch 4% [Lidocaine Pain Relief] 1 patch TOP DAILY 10 Days #10 patch Comments: Continue to follow-up with your PCP in the outpatient setting as well as physical therapy sent pain medications to your pharmacy please take as prescribed return to emergency department with any new or worsening symptoms. Including numbness tingling loss of sensation incontinence issues or any other new or worsening symptoms Discharge Date/Time: 04/03/24 18:35
[2024-04-03] MEDS: KETOROLAC 15 MG/ML VIAL IM STA (16:12)
[2024-04-03] MEDS: CYCLOBENZAPRINE 10 MG TABLET PO STA (16:13)
--- NOTE | 2024-04-03 17:21 | MRI Report ---
PROCEDURE: Lumbar Spine WO INDICATIONS: hx of testicular cancer, worsening lower back pain TECHNIQUE: Noncontrast sagittal T1 spin echo and T2 fast echo, sagittal STIR, axial T1 and T2 fast spin echo thr ough the lumbar spine. In cases with scoliosis, additional coronal T2 fast spin echo may be performe d. COMPARISON: None. FINDINGS: Image quality: Excellent. Alignment and Curvature: There is normal bony alignment. Bone Marrow: Mild Modic 2 changes at L5-S1. No acute vertebral body compression fractures. Spinal Cord: Conus medullaris terminates at the L1 level. Visualized cord demonstrates normal signa l and size. Paraspinous Soft Tissues: No paravertebral masses. T12-L1: Normal in appearance. L1-L2: Normal in appearance. L2-L3: Trace left facet effusion. L3-L4: Trace left facet effusion. Mild disc desiccation. Mild broad-based disc bulge. L4-L5: Mild facet hypertrophy and ligament hypertrophy. Broad-based disc bulge with annular fissure . Mild to moderate spinal canal narrowing with narrowing of the lateral recesses. L5-S1: Broad-based disc bulge with superimposed central protrusion. Bilateral facet effusions. Mild bilateral neural foraminal narrowing. IMPRESSION: No evidence of metastatic disease. Multilevel degenerative disc disease and facet arthrosis, as detailed above. No severe spinal canal o r neural foraminal narrowing. Reviewed by: Saroj Lewis MD on 04/03/2024 5:20 PM PDT Approved by: Saroj Lewis MD on 04/03/2024 5:20 PM PDT Station ID: [id number]
[2024-04-03 18:41] VITALS: BP 129/68; O2SAT 99
== END 2024-04-03 18:35 | disposition home or self-care (01) ==
LOC: ED 12:57
DX: S39.012A Strain of muscle, fascia and tendon of lower back, initial encounter (principal); X58.XXXA Exposure to other specified factors, initial encounter; Z85.47 Personal history of malignant neoplasm of testis
CPT/HCPCS: 72148; 99282; 99284; A9270